=== PATIENT | male | born 2000 | race Caucasian/White ===

== ENCOUNTER 2020-12-05 11:11 | Inpatient (IN) | payer BC, SELFPAY ==
[2020-12-05] VITALS (7 sets, daily range): BP systolic 121–184; BP diastolic 79–123; PULSE 103–118; RESP 16–20; TEMP 36.7–36.9; O2SAT 97–100; BMI 22.8
--- NOTE | 2020-12-05 11:24 | ED_ITS ---
HPI - Psych General: Chief Complaint: Psychiatric Symptoms Stated Complaint: ETOH, CONFUSION Time Seen by Provider: 12/05/20 11:12 Source: patient and police Mode of arrival: EMS Limitations: no limitations History of Present Illness: HPI Narrative: Patient is a 20-year-old male who presents to ED today on a 96-hour hold after police responded to a phone call for an individual for methamphetamine and alcohol use. Upon police arrival patient made several suicidal statements and stated he had a plan to blow his head off. Upon arrival patient tells me that he feels very confused . He states he is not able to elaborate on this much. He is able to answer all of my questions appropriately. He is alert and oriented x3. Patient does admit to methamphetamine and alcohol use. He also states he took two pills yesterday evening to try to sleep. Patient tells me he has felt suicidal over the past few days. He states his plan currently is to slit his wrists. MD complaint: suicidal ideation Onset (ago): day(s) Duration: constant History of same: Yes Associated psychiatric symptoms: depression and suicidal ideation Associated symptoms: Reports depression and suicidal ideation; Deny auditory hallucinations, visual hallucinations or homicidal ideation Treatments prior to arrival: placed on mental health hold If self harm: admits thoughts of self harm and has plan Review of Systems Const: Denies: fever(s) or chills Card: Denies: chest pain, palpitations, lightheadedness or syncope Resp: Denies: dyspnea GI: Denies: abdominal pain, nausea, vomiting or diarrhea Skin/Breast: Denies: rash Neuro: Denies: headache(s) Psych: Reports: depression, hopelessness and suicidal ideation; Denies: anxiety, panic attacks, visual hallucinations, auditory hallucinations or homicidal ideation Physical Exam Const: COMMON NORMALS: no acute distress, patient oriented x3, alert and well nourished GENERAL APPEARANCE: cooperative and well kempt Resp: COMMON NORMALS: normal respiratory effort and clear to auscultation bilaterally AUSCULTATION: clear to auscultation bilaterally Cardio: COMMON NORMALS: regular rate and regular rhythm RATE: regular rate RHYTHM: regular rhythm Neuro: COMMON NORMALS: patient oriented x3 SENSORIUM/ORIENTATION: Yes alert Psych: COMMON NORMALS: mental status grossly normal, Normal thought process present, cooperative, normal affect, speech normal, activity/motor behavior normal, denies hallucinations and denies homicidal ideation APPEARANCE: Yes grossly normal and Yes well kempt ACTIVITY/MOTOR BEHAVIOR: Yes appropriate eye contact and No psychomotor agitation SPEECH: Yes normal speech THOUGHT PROCESS: Normal thought process present THOUGHT CONTENT: Yes Normal thought content present ATTENTION/CONCENTRATION: Yes attention grossly intact and Yes concentration grossly intact MEMORY/COGNITION: Yes memory grossly intact and Yes cognition grossly intact INSIGHT: Good insight present (Psych) JUDGEMENT: Good judgement present (Psych) MDM - Psych MDM Narrative: Medical decision making narrative: Patient cleared medically. CT head performed due to patient's complaint of confusion. Also perform CXR due to the complaint of confusion and his tachycardia. He also had a mild white count of slightly over 16,000. Most likely his confusion and tachycardia is secondary to his methamphetamine use and the two sleeping pills he took late last night early this morning. No signs of infection/sepsis. He is on a 96 [address] hold [address] police[address] Dr. Solomon has accepted to [facility]. Lab Data: Labs: Lab Results 12/05/20 12/05/20 12/05/20 Range/Units 11:27 12:30 12:30 WBC 16.3 H (4.5-13.0) 10^3/ uL RBC 5.52 H (4.1-5.3) 10^6/u L Hgb 16.7 H (11.7-16.6) g/dL Hct 49.9 (42.0-52.0) % MCV 90.4 (80-94) fL MCH 30.3 (28.0-34.0) pg MCHC 33.5 (30.0-36.0) g/dL RDW 12.3 (12.1-15.1) % Plt Count 222 (130-400) 10^3/c mm MPV 10.4 (7.4-10.4) fL Neut % (Auto) 80.5 % Lymph % (Auto) 12.1 % Rowan % (Auto) 6.7 % Eos % (Auto) 0.1 % Baso % (Auto) 0.3 % Neut # (Auto) 13.09 H (1.8-8.0) 10^3/u L Lymph # (Auto) 2.0 (1.5-6.5) 10^3/u L Rowan # (Auto) 1.1 H (0.2-0.9) 10^3/u L Eos # (Auto) 0.0 (0.0-0.8) 10^3/u L Baso # (Auto) 0.1 (0.0-0.1) 10^3/u L Nucleated RBC % (a uto) 0 % Nucleated RBCs # 0.0 /100WBC Sodium 141 (136-145) mmol/L Potassium 3.5 (3.5-5.1) mmol/L Chloride 103 (98-107) mmol/L Carbon Dioxide 23 (22-29) mmol/L Anion Gap 18.5 (5-19) BUN 11 (6-20) mg/dL Creatinine 0.7 (0.7-1.2) mg/dL GFR Calculation 143.8 H (90-130) mL/min Glucose 100 (65-115) mg/dL Calculated Osmolal ity 291 (285-295) mOsm/k g Calcium 9.9 (8.5-10.5) mg/dL Total Bilirubin 1.4 H (0.15-1.2) mg/dL AST 25 (0-40) U/L ALT 17 (0-41) U/L Alkaline Phosphata se 107 (40-130) IU/L Total Protein 8.4 (6.6-8.7) g/dL Albumin 5.0 (3.5-5.2) g/dL Globulin 3.4 (1.3-4.6) g/dL Salicylates 0.4 L (3-10) mg/dL Urine Opiates Scre en Negative (Negative) ng/mL Acetaminophen < 5.0 L (10-30) ug/mL Ur Barbiturates Sc reen Negative (Negative) ng/mL Ur Phencyclidine S crn Negative (Negative) ng/mL Ur Amphetamines Sc reen Positive H (Negative) ng/mL U Benzodiazepines Scrn Negative (Negative) ng/mL Urine Cocaine Scre en Negative (Negative) ng/mL U Marijuana (THC) Screen Positive H (Negative) ng/mL Ethyl Alcohol < 10 (0-10) mg/dL Imaging Data^: CT Head: Radiologist's impression: [address] [place] [address] CT Scan Report Signed Patient: Alfonso Jerome Unit #: [id number] : 2000 Age/Sex: 20 / M ADM Date: 12/05/20 Loc: ER Room/Bed: Attending Dr: Ordering Provider/Ordering MD: Lisa Martinez Date of Service: 12/05/20 Procedure(s): CT head wo con* [id number] Accession Number(s): [id number] Report Number: [id number] WS: [id number] CT HEAD TECHNIQUE: Noncontrast CT of the head obtained from the skullbase to the vertex. CLINICAL INFORMATION: reports confusion/AMS COMPARISON: None. DLP: 747.[address] scans at [facility] use at least one of these dose optimization techniques: automated exposure control; mA and/or kV adjustment per patient size (includes targeted exams where dose is matched to clinical indication); or iterative reconstruction. FINDINGS: No evidence of intracranial hemorrhage or mass effect. Ventricular system and basal cisterns are patent. No extra-axial fluid collections. No evidence of mass or mass effect. Normal vargas-white differentiation. Paranasal sinuses and mastoid air cells are well aerated. .Normal visualized soft tissues. CT/CT head wo con* [id number] IMPRESSION: 1. No evidence of intracranial hemorrhage or mass effect. 2. Normal vargas-white differentiation. 3. No acute intracranial findings. Dictated By: David Alejandre MD Signed By: David Alejandre MD Signed Date/Time: 12/05/20 1208 DD/ 1204 CXR: Radiologist's impression: [address] [address] XRay Report Signed Patient: Ankit Jerome #: [id number] : 2000Acct#:[id number] Age/Sex: 20 / MADM Date: 12/05/20 Loc: ERRoom/Bed: Attending Dr: Ordering Provider/Ordering MD: Lisa Martinez Date of Service: 12/05/20 Procedure(s): XR chest 1V portable [id number] Accession Number(s): [id number] Report Number: [id number] WS: [id number] Portable AP upright chest, 12/05/2020 Clinical Data: AMS Comparison: Portable chest, 03/27/2017. Findings: No nodules, masses or effusions are seen. The heart is normal. The pulmonary vascularity is not increased. No pneumonia or pneumothorax is seen. XR/XR chest 1V portable [id number] Impression: Negative chest. Dictated By:Violeta Freedman MD Signed By:Violeta Freedman MDSigned Date/Time:12/05/20 1357 DD/ 1356 Discharge Plan Discharge Patient Disposition: Admitted As Inpatient Clinical Impression: Polysubstance abuse, Suicidal ideation, Involuntary commitment Condition: Stable Prescriptions: No Action No Known Home Medications RF: 0 Coding Level of Care Code ED Kick Press Setter for Chg Fwd Exam Expanded Problem Focused
--- NOTE | 2020-12-05 11:24 | CT_ITS ---
WS: [id number] CT HEAD TECHNIQUE: Noncontrast CT of the head obtained from the skullbase to the vertex. CLINICAL INFORMATION: reports confusion/AMS COMPARISON: None. DLP: 747.[address] scans at [facility] use at least one of these dose optimization techniques: automat ed exposure control; mA and/or kV adjustment per patient size (includes targeted exams where dose is matched to clinical indication); or iterative reconstruction. FINDINGS: No evidence of intracranial hemorrhage or mass effect. Ventricular system and basal cisterns are billings nt. No extra-axial fluid collections. No evidence of mass or mass effect. Normal vargas-white different iation. Paranasal sinuses and mastoid air cells are well aerated. .Normal visualized soft tissues. CT/CT head wo con* [id number] IMPRESSION: 1. No evidence of intracranial hemorrhage or mass effect. 2. Normal vargas-white differentiation. 3. No acute intracranial findings.
[2020-12-05 12:06] LABS: Amphetamines Screen Urine Positive (Negative); Barbiturates Screen Urine Negative (Negative); Benzodiazepines Screen Urine Negative (Negative); Cocaine Screen Urine Negative (Negative); Opiate Screen Urine Negative (Negative); PCP Screen Urine Negative (Negative); THC Screen Urine Positive (Negative)
[2020-12-05 12:47] LABS: Basophils # 0.1 10^3/uL (0.0-0.1); Basophils % 0.3 %; Eosinophils % 0.1 %; Hematocrit 49.9 % (42.0-52.0); Hemoglobin 16.7 g/dL (11.7-16.6); Lymphocytes % 12.1 %; Mean Corpuscular HGB Conc 33.5 g/dL (30.0-36.0); Mean Corpuscular Hemoglobin 30.3 pg (28.0-34.0); Mean Corpuscular Volume 90.4 fL (80-94); Mean Platelet Volume 10.4 fL (7.4-10.4); Monocytes # 1.1 10^3/uL (0.2-0.9); Monocytes % 6.7 %; Neutrophils # 13.09 10^3/uL (1.8-8.0); Neutrophils % 80.5 %; Nucleated Red Blood Cells % 0 %; Platelet Count 222 10^3/cmm (130-400); Red Blood Count 5.52 10^6/uL (4.1-5.3); Red Cell Distribution Width 12.3 % (12.1-15.1); White Blood Count 16.3 10^3/uL (4.5-13.0)
[2020-12-05] MEDS: LORazepam 2 mg/mL INJ 1 mL 1 MG IVP (13:05)
[2020-12-05 13:06] LABS: Alanine Aminotransferase 17 U/L (0-41); Alkaline Phosphatase 107 IU/L (40-130); Anion Gap 18.5 (5-19); Aspartate Amino Transferase 25 U/L (0-40); Blood Urea Nitrogen 11 mg/dL (6-20); Calcium 9.9 mg/dL (8.5-10.5); Carbon Dioxide 23 mmol/L (22-29); Chloride 103 mmol/L (98-107); Globulin 3.4 g/dL (1.3-4.6); Glomerular Filtration Rate 143.8 mL/min (90-130); Glucose 100 mg/dL (65-115); Osmolality Calculated 291 mOsm/kg (285-295); Potassium 3.5 mmol/L (3.5-5.1); Salicylate 0.4 mg/dL (3-10); Sodium 141 mmol/L (136-145); Total Bilirubin 1.4 mg/dL (0.15-1.2); Total Protein 8.4 g/dL (6.6-8.7)
[2020-12-05 13:07] LABS: Acetaminophen < 5.0 ug/mL (10-30); Alcohol Level < 10 mg/dL (0-10)
--- NOTE | 2020-12-05 13:38 | XR_ITS ---
WS: [id number] Portable AP upright chest, 12/05/2020 Clinical Data: AMS Comparison: Portable chest, 03/27/2017. Findings: No nodules, masses or effusions are seen. The heart is normal. The pulmonary vascularity is not increased. No pneumonia or pneumothorax is seen. XR/XR chest 1V portable [id number] Impression: Negative chest.
[2020-12-05] MEDS: nicotine 2 mg Gum BUCCAL ×4 (15:34→21:10)
[2020-12-05] MEDS: hyDROXYzine 25 mg Capsule 50 MG PO (21:31)
[2020-12-05] MEDS: OLANZapine 5 mg ODT PO (21:31)
[2020-12-05] MEDS: trazodone 50 mg Tablet PO ×2 (21:31→22:20)
--- NOTE | 2020-12-05 21:36 | PC.NURSE ---
The [patient is restless, pacing. He was shouting through the nurse station window gap to get the attention of the charge nurse. The patient said he feels confused. I said we can help him with the confusion. Then he said he is not confused. Then he said he is not sure. He said, I really need to smoke a cigarette. He is having trouble retaining information I give him about treatment at this facility. He has increasing agitation. He was agreeable to take prn meds. Given Zyprexa Zydis 5 mg, Vistaril 50 mg, Trazodone 50 mg after teaching completed for each med.
[2020-12-05] MEDS: haloperidol 5 mg Tablet PO (22:20)
--- NOTE | 2020-12-06 03:52 | PC.NURSE ---
PM ASSESSMENT PT IS RESTLESS, DENIES AH/VH, DENIES SI/HI AT THIS TIME. PT FREELY SHARED HIS ILLICIT DRUG USE WITH NURSING STAFF, ADMITTED TO USING METH/MARIJUANA, THIS LAST WEEK.
[2020-12-06 06:00] VITALS: RESP 17
[2020-12-06] MEDS: nicotine 2 mg Gum BUCCAL ×5 (07:49→21:03)
[2020-12-06] MEDS: hyDROXYzine 25 mg Capsule 50 MG PO ×2 (12:21→21:02)
--- NOTE | 2020-12-06 12:34 | P.HP_ITS ---
Providers/Chief Complaint Admitting Physician: Charlie Solomon MD Chief Complaint: ETOH, CONFUSION HPI NPU History of Present Illness Alfonso Jerome is a 20 year old male with a longstanding history of polysub stance abuse and alcohol abuse presented to the emergency department by police while intoxicated with methamphetamine. Patient was endorsing suicidal ideation with threat of cutting his wrist and has remote history of 2 overdose attempts. Patient reports longstanding history of depressive symptoms which appear to constitute major depressive episodes in the past although patient has complicating factor of ongoing substance use throughout these time periods although he does report having depressive symptoms that predate his first use of substances and alcohol. Patient continues to report intermittent passive suicidal thoughts and thoughts about self-harm although he reports his last self-harm of burning himself with cigarettes occurred over a couple years ago. Patient denies any past or recent manic or hypomanic episodes. Patient reports perceptual disturbances in the context of substance use but denies any current visual or auditory hallucinations and denies any delusions. He does report some illusions in the past but no current complaints. Patient denies any past ongoing treatment with psychiatric medication or therapy although he does report to past episodes of residential treatment for substance and alcohol use. Patient reports poor compliance with follow-up care and treatment for his depressive symptoms and reports frequent relapse with substance and alcohol. He reports strong motivation to abstain from the use of substances and alcohol and understands the consequences of his ongoing use. Review of Systems General: Reports: 10 or more systems reviewed and unremarkable except in HPI and below Meds NPU Home Medications Medication Instructions Recorded Confirmed Last Taken Type No Known Home Medications 12/05/20 12/05/20 Unknown History Allergies Allergy/AdvReac Type Severity Reaction Status Date / Time acetaminophen [From Percocet] Allergy ADR-Itching Verified 12/05/20 11:26 oxycodone [From Percocet] Allergy ADR-Itching Verified 12/05/20 11:26 [facility] NPU Other Psychiatric History: Other Psychiatric History: Reports past hospitalization for substance related issues but denies any psychiatric hospitalizations Reports past overdose attempts around the age of 12 and 15, reports self-harm behavior with burning himself with cigarettes Mental Status Exam MSE Comments: Appears stated age, appropriately dressed, somewhat nervous appearing but polite and cooperative with interview, good rapport, good eye contact Psychomotor activity is neither increased nor decreased, no agitation Speech is normal rate and volume, fair articulation, spontaneous, not pressured I feel confused, congruent affect, somewhat constricted, not labile Alert but reportedly confused about circumstances leading to his hospitalization, oriented to person, place, time Memory and concentration are fair at best per interview Intellectual functioning is average at best based on vocabulary, interview Thought process, occasional delays, linear, no flight of ideas, no looseness of association Thought content, no delusions, no hallucinations, no suicidal or homicidal ideation Insight and judgment appear to be fair based on patient's ongoing use of substances despite ongoing depressive symptoms and life stressors Vitals/I&O/Wt Last Vital Signs Temp 98.3 F 12/05/20 20:31 Pulse 103 H 12/05/20 20:31 Resp 17 12/06/20 06:00 BP 121/79 12/05/20 20:31 Pulse Ox 100 12/05/20 20:31 Weight last 48 hrs Weight 68.039 kg Data NPU : 12/05/20 12:30 12/05/20 12:30 A&P Assessment and plan (1) Depressive disorder: Status: Acute (2) Suicidal ideation: Status: Acute (3) Polysubstance abuse: Status: Acute Additional A&P Information 20-year-old male with longstanding history of polysubstance abuse and reported longstanding depressive symptoms presented with methamphetamine intoxication and suicidal ideation currently reporting ongoing depressive symptoms and would benefit from starting a low-dose antidepressant as well as follow on substance counseling/treatment. INVOLUNTARY ADMIT to inpatient psychiatry START citalopram 10 mg by mouth daily targeting depressive symptoms Discussed need to abstain from the use of substances and alcohol as well as need for post discharge substance counseling/treatment Encourage patient participate in unit activities to include group sessions as well as unit milieu Involuntary Hold Information 96 Hour Hold: 96 Hour Involuntary Admission: No Attestations NPU Medical Necessity Statement*: Require psychiatric hospitalization for recent suicidal ideation and reported worsening depressive symptoms in the context of increasing substance use Time Spent in Patient Care: Greater than 35 minutes (>than 50% of time spent in counselling and/or direct pt care on unit) . Coding Level of Care Code Acute Environmental Analyst for Td Fwd Diagnoses Depressive disorder F32.9 Suicidal ideation R45.851 Polysubstance abuse F19.10
[2020-12-06 14:00] VITALS: BP 110/74; PULSE 93; RESP 20; TEMP 36.2; O2SAT 94
[2020-12-06 22:00] VITALS: BP 140/76; PULSE 130; RESP 17; TEMP 36.7; O2SAT 97
[2020-12-07 06:00] VITALS: BP 104/71; PULSE 104; RESP 15; TEMP 36.6; O2SAT 99
[2020-12-07] MEDS: citalopram 20 mg Tablet 10 MG PO (07:54)
--- NOTE | 2020-12-07 09:31 | PM.NPN ---
Subjective NPU Subjective: Interval history: Patient continues to report some paranoia some anxiety but reports significant improvement Reports occasional depressive symptoms but denies any sustained depressive symptoms, denies any suicidal ideation Denies any manic symptoms Reports some improvement in sleep, feels rested Reports improved appetite States that he has been compliant with his medication, denies any medication side effects Per staff report, no interval behavioral disturbances Mental Status Exam MSE Comments: Appears more calm today although occasionally somewhat anxious, polite and cooperative with interview, appropriately groomed and dressed, good eye contact Psychomotor activity is neither increased nor decreased, no agitation Speech is normal rate and volume, fair articulation, spontaneous, not pressured I feel a little better, congruent affect, not labile Alert, oriented to person, place, time Memory and concentration appear to be fair to intact per interview Thought process, linear, no flight of ideas, no looseness of association Thought content, no delusions, no hallucinations, no suicidal or homicidal ideation Insight and judgment appear to be intact Vitals/I&O/Wt Last Vital Signs Temp 97.8 F 12/07/20 06:00 Pulse 104 H 12/07/20 06:00 Resp 15 12/07/20 06:00 BP 104/71 12/07/20 06:00 Pulse Ox 99 12/07/20 06:00 Weight last 48 hrs Weight 68.039 kg Data NPU : 12/05/20 12:30 12/05/20 12:30 Involuntary Hold Information 96 Hour Hold: 96 Hour Involuntary Admission: No Attestations NPU Medical Necessity Statement*: Continues require psychiatric hospitalization for medication stabilization, coordination for safe discharge Coding Level of Care Code Acute Safety Equipment Testing Specialist for Td Avila
[2020-12-07] MEDS: nicotine 21 mg Patch 1 PATCH TRANSDERMA (09:43)
[2020-12-07 14:00] VITALS: BP 115/74; PULSE 104; RESP 18; TEMP 37.1; O2SAT 98
[2020-12-07] MEDS: hyDROXYzine 25 mg Capsule 50 MG PO (20:17)
[2020-12-07 22:00] VITALS: BP 120/82; PULSE 125; RESP 18; TEMP 36.9; O2SAT 100
[2020-12-08 06:00] VITALS: BP 137/81; PULSE 104; RESP 17; TEMP 36.4; O2SAT 96
[2020-12-08] MEDS: citalopram 20 mg Tablet 10 MG PO (09:38)
[2020-12-08] MEDS: nicotine 21 mg Patch 1 PATCH TRANSDERMA (09:39)
[2020-12-08] MEDS: nicotine 2 mg Gum BUCCAL ×4 (12:38→20:00)
--- NOTE | 2020-12-08 13:26 | PM.NPN ---
Subjective NPU Subjective: Interval history: Continues reports significant improvement in mood, denies any interval suicidal ideation Denies any interval psychotic symptoms, no longer complaining of any paranoia, no visual hallucinations Reports improved appetite Reports improved sleep States that he is compliant with his medication, denies medication side effects Mental Status Exam MSE Comments: Sitting on his bed, calm, cooperative, appropriately groomed and dressed, polite, good eye contact Psychomotor activity is neither increased nor decreased, no agitation Speech is normal rate and volume, fair articulation, spontaneous, not pressured I feel pretty good, congruent affect, not labile Alert, oriented to person, place, time Memory and concentration appear to be fair to intact per interview Thought process, linear, no flight of ideas, no looseness of association Thought content, no delusions, no hallucinations, no suicidal or homicidal ideation Insight and judgment appear to be intact Vitals/I&O/Wt Last Vital Signs Temp 97.6 F 12/08/20 06:00 Pulse 104 H 12/08/20 06:00 Resp 17 12/08/20 06:00 BP 137/81 12/08/20 06:00 Pulse Ox 96 12/08/20 06:00 Data NPU : 12/05/20 12:30 12/05/20 12:30 A&P Assessment and plan (1) Suicidal ideation: Status: Acute (2) Depressive disorder: Status: Acute (3) Polysubstance abuse: Status: Acute Additional A&P Information Reports significant improvement in mood, denies any paranoia or psychotic symptoms, denies any suicidal ideation CONTINUE current medication, continue to monitor Involuntary Hold Information 96 Hour Hold: 96 Hour Involuntary Admission: No Attestations NPU Medical Necessity Statement*: Continues to require psychiatric hospitalization for medication stabilization, coordination for safe discharge Coding Level of Care Code Acute Medical Delivery Technician for Td Fwd Diagnoses Suicidal ideation R45.851 Depressive disorder F32.9 Polysubstance abuse F19.10
[2020-12-08 14:00] VITALS: BP 131/86; PULSE 70; RESP 18; TEMP 36.3; O2SAT 97
[2020-12-08] MEDS: hyDROXYzine 25 mg Capsule 50 MG PO (20:45)
[2020-12-08 21:13] VITALS: BP 139/94; PULSE 81; RESP 17; TEMP 36.7; O2SAT 99
[2020-12-09 06:00] VITALS: BP 121/76; PULSE 105; RESP 16; TEMP 36.7; O2SAT 99
[2020-12-09] MEDS: citalopram 20 mg Tablet 10 MG PO (08:06)
[2020-12-09 10:09] VITALS: BP 121/76; PULSE 105; RESP 16; TEMP 36.7; O2SAT 99
--- NOTE | 2020-12-09 10:09 | P.DS_ITS ---
Diagnoses at Discharge Discharge Diagnosis (1) Suicidal ideation: Status: Acute (2) Depressive disorder: Status: Acute (3) Polysubstance abuse: Status: Acute Reason for Visit Reason for Visit: ETOH, CONFUSION Hospital Course Hospital Course 20 year old male with a longstanding history of polysubstance abuse and alcohol abuse presented to the emergency department by police while intoxicated with methamphetamine. Patient initially endorsed suicidal ideation and had threatened to cut his wrist at the time of emergency department evaluation but subsequently was no longer endorsing suicidal ideation as he sobered. Patient states that he has been having intermittent episodes of depression as well as anxiety symptoms which have been exacerbated by ongoing life stressors and ongoing use of substances. Patient was started on citalopram 10 mg daily which she tolerated well with no reports of any medication side effects. Patient reported improvement in his psychotic symptoms and paranoia as well as improvement in his depressive symptoms over the course of his hospital stay. He participated in unit milieu with no reports of any behavioral disturbances. He was not suicidal at the time of discharge and did not appear to pose an imminent threat of harm to self or others. Low to moderate risk of harm to self given no current suicidal ideation and no current endorsement of any psychiatric symptoms although patient's risk may be elevated if he continues to use substances or is noncompliant with his medication medication management follow-up leading to unexpected, impulsive behavior. Risk mitigation included psychiatric hospitalization, observation for any ongoing suicidal ideation or behavior, medication stabilization as well as recommendation to abstain from the use of substances and alcohol. Patient communicated his understanding of the need to abstain from the use of substances and alcohol as well as the need for compliance with his medication, medication management and substance counseling/treatment in order to further mitigate his risk of harm to self and others. Involuntary Hold Information 96 Hour Hold: 96 Hour Involuntary Admission: No Mental Status Exam MSE Comments: Standing in the unit hallway, appropriately groomed and dressed, polite, interactive, good eye contact Psychomotor activity is neither increased nor decreased, no agitation Speech is normal rate and volume, fair articulation, spontaneous, not pressured I feel good, congruent affect, not labile Alert, oriented to person, place, time Memory and concentration appear to be fair to intact per interview Thought process, linear, no flight of ideas, no looseness of association Thought content, no delusions, no hallucinations, no suicidal or homicidal ideation Insight and judgment appear to be intact Discharge Data Data Completed and Pending: Completed Studies During Hospitalization Category Date Time Status CT head wo con* 7 0450 Urgent Cat Scan 12/05/20 11:24 Completed XR chest 1V maricel ble [id number] Urgent Exams 12/05/20 13:38 Completed Vitals: Last Vital Signs Temp 98.0 F 12/09/20 06:00 Pulse 105 H 12/09/20 06:00 Resp 16 12/09/20 06:00 BP 121/76 12/09/20 06:00 Pulse Ox 99 12/09/20 06:00 Discharge Plan Discharge Patient Disposition: Home Condition: Stable Prescriptions: New citalopram 20 mg Tablet 10 mg PO DAILY Qty: 30 RF: 0 Discharge Orders: Discharge Order (Routine); Ordered 12/09/20 Ordered By: Coleman Patel Discharge Diet: Regular Discharge Activity: Resume usual activity Patient Instructions: Citalopram (By mouth) Discharge Attestations NPU Time Spent in Discharge Care*: greater than 30 min Status at Discharge: Cognitive status at discharge: cognitively intact , Behavioral status at discharge: cooperative , Functional status at discharge: independent ambulation Overall status at discharge: patient is back to baseline Coding Level of Care Code Acute Captain Room Service for Td Fwd Diagnoses Suicidal ideation R45.851 Depressive disorder F32.9 Polysubstance abuse F19.10
== END 2020-12-09 10:14 | disposition home or self-care (01) | DRG 881 ==
LOC: ER 14:04 → NP 14:25
PROVIDERS: Admitting Provider Psychiatry & Neurology Psychiatry; Emergency Provider Physician Assistant; Visit Provider Psychiatry & Neurology Psychiatry
DX: F32.9 Major depressive disorder, single episode, unspecified (principal); R45.851 Suicidal ideations; F19.129 Other psychoactive substance abuse with intoxication, unspecified; Z91.5 Personal history of self-harm
CPT/HCPCS: 70450; 71045; 80053; 80306; 80307; 85025; 96374; 99285; J2060